=== PATIENT | female | born 2000 | race African-American/Black ===

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

== ENCOUNTER 2020-04-13 12:46 | Emergency (ER) | payer OTHER ==
[2020-04-13] MEDS ORDERED: CYCLOBENZAPRINE HCL 10 MG TABLET PO ONE (13:42)
[2020-04-13] MEDS ORDERED: IBUPROFEN 800 MG TABLET PO ONE (13:42)
[2020-04-13 13:44] VITALS: BP 125/83
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
== END 2020-04-13 13:52 | disposition left against medical advice (07) ==
LOC: ER 12:46
DX: S16.1XXA Strain of muscle, fascia and tendon at neck level, initial encounter (principal); M79.18 Myalgia, other site; V43.52XA Car driver injured in collision with other type car in traffic accident, initial encounter; J45.909 Unspecified asthma, uncomplicated
CPT/HCPCS: 99283

== ENCOUNTER 2020-06-19 19:13 | Emergency (ER) | payer OTHER ==
[2020-06-19] MEDS ORDERED: HYDROCODONE/ACETAMINOPHEN 5-325 MG TABLET PO ONE (22:04)
--- NOTE | 2020-06-19 22:08 | ER Document Report ---
HPI - HPI Patient complains to provider of: right ankle injury Time Seen by Provider: 06/19/20 21:58 Pain Level: 3 Context: 19-year-old female with no previous medical problems presents emergency room complaining of right ankle and right tib-fib pain. Patient states she tripped and fell at work yesterday twisting her right ankle. States she took ibuprofen earlier today without relief. History of a previous right ankle fracture 4 years ago. States is able to walk but is painful and is limping. Associated Symptoms: None Exacerbated by: Walking Relieved by: Remaining still Similar symptoms previously: Yes - Right ankle fracture 4 years ago Recently seen / treated by doctor: No - ROS Systems Reviewed and Negative: Yes All other systems reviewed and negative - NEURO Neurology: DENIES: Weakness - RESPIRATORY Respiratory: DENIES: Trouble Breathing - REPRODUCTIVE Reproductive: DENIES: : - MUSCULOSKELETAL Musculoskeletal: REPORTS: Extremity pain - DERM Skin Color: Normal Skin Problems: None Past Medical History - General Information source: Patient - Social History Smoking Status: Never Smoker Frequency of alcohol use: None Drug Abuse: None Family History: None Pulmonary Medical History: Reports: Hx Asthma Renal/ Medical History: Denies: Hx Peritoneal Dialysis Musculoskeletal Medical History: Reports Hx Musculoskeletal Trauma Traumatic Medical History: Reports: Hx Fractures - Immunizations Immunizations up to date: Yes Hx Diphtheria, Pertussis, Tetanus Vaccination: Yes Vertical Provider Document - CONSTITUTIONAL Agree With Documented VS: Yes Exam Limitations: No Limitations General Appearance: Mild Distress - INFECTION CONTROL TRAVEL OUTSIDE OF THE [place] IN LAST 30 DAYS: No - HEENT HEENT: Atraumatic, Normocephalic - NECK Neck: Normal Inspection, Supple, Thyroid Normal - RESPIRATORY Respiratory: Breath Sounds Normal, No Respiratory Distress, Chest Non-Tender - CARDIOVASCULAR Cardiovascular: Regular Rate, Regular Rhythm, No Murmur - MUSCULOSKELETAL/EXTREMETIES Musculoskeletal/Extremeties: Tender - There is tenderness and swelling over the right lateral malleus. There is tenderness to the right mid cuevas with palpation. There is no obvious deformity noted. Painful range of motion with flexion, extension, eversion and inversion to the right ankle. - NEURO Level of Consciousness: Awake, Alert Motor/Sensory: No Motor Deficit, No Sensory Deficit Notes: Positive right pedal pulse. Capillary refill less than 3 seconds. - DERM Integumentary: Warm, Dry, No Rash Course - Re-evaluation Re-evalutation: 06/19/20 22:42 Negative x-ray results with patient. She is able to ambulate with slight limp noted to her right leg. She was counseled to rest, ice, elevate her right leg. Take Tylenol and/or Motrin as needed for pain. She will need to follow-up through her employer for a Worker's Comp. referral if she is unable to return to work. Patient was given strict return to the emergency room guidelines. Return for any new or worsening symptoms. All questions were answered. Patient verbalized understanding and agrees with plan of care. - Vital Signs Vital signs: Temp Pulse Resp BP Pulse Ox 98.0 F 80 16 111/74 100 06/19/20 20:08 06/19/20 20:08 06/19/20 20:08 06/19/20 20:08 06/19/20 20:08 - Diagnostic Test Radiology reviewed: Reports reviewed Discharge - Discharge Clinical Impression: Pain in right cuevas Right ankle sprain Qualifiers: Encounter type: initial encounter Involved ligament of ankle: other ligament Qualified Code(s): S93.491A - Sprain of other ligament of right ankle, initial encounter Condition: Stable Disposition: HOME, SELF-CARE Instructions: Contusion ([facility]), Sprained Ankle ([facility]) Additional Instructions: Rest, ice, elevate, Tylenol and or Motrin as needed for pain. You will need to follow-up with your employer for referral to Worker's Comp. if you are unable to return to work. Return to the emergency room for any new or worsening symptoms.
--- NOTE | 2020-06-19 22:38 | RADIOLOGY REPORT (SQ) ---
EXAM DESCRIPTION: XR TIBIA FIBULA 2 VIEWS COMPLETED DATE/TME: 06/19/2020 22:05 CLINICAL HISTORY: 19 years, Female, injury COMPARISON: None. NUMBER OF VIEWS: TECHNIQUE: LIMITATIONS: None. FINDINGS: 2 views of the right tibia and fibula were obtained. No fracture or dislocation. Mineralization of bone appears normal. IMPRESSION: No fracture or dislocation. copyright 2010 [employer]- All Rights Reserved
--- NOTE | 2020-06-19 22:40 | RADIOLOGY REPORT (SQ) ---
EXAM DESCRIPTION: X-ray right ankle, 3 views COMPLETED DATE/TME: 06/19/2020 22:05 CLINICAL HISTORY: 19 years, Female, injury COMPARISON: None. NUMBER OF VIEWS: TECHNIQUE: LIMITATIONS: None. FINDINGS: No fracture or dislocation. Mineralization of bone appears normal. IMPRESSION: No fracture or dislocation. copyright 2010 [employer]- All Rights Reserved
[2020-06-19 23:01] VITALS: BP 116/70
== END 2020-06-19 22:54 | disposition home or self-care (01) ==
LOC: ER 19:13
DX: S93.491A Sprain of other ligament of right ankle, initial encounter (principal); M79.604 Pain in right leg; M25.571 Pain in right ankle and joints of right foot; W01.0XXA Fall on same level from slipping, tripping and stumbling without subsequent striking against object, initial encounter; J45.909 Unspecified asthma, uncomplicated
CPT/HCPCS: 99283